=== PATIENT | male | born 1990 | race Caucasian/White ===

== ENCOUNTER 2017-10-20 01:48 | Emergency (ER) | payer MEDICAID ==
--- NOTE | 2017-10-20 02:46 | ED PDOC ---
Arrival/HPI - General Chief Complaint: Eye Problem Time Seen by Provider: 10/20/17 02:12 Historian: Patient - History of Present Illness Narrative History of Present Illness (Text): 10/20/17 02:46 27 year old male, with no significant past medcial history, presents to the emergency department for evaluation of area of redness to the white part of the right eye. Patient denies any history of trauma. Patient denies any visual disturbance, eye pain, headache, dizziness, or any other complaints. Symptom Onset: Gradual Symptom Course: Unchanged Activities at Onset: Light Context: Home Past Medical History - Provider Review Nursing Documentation Reviewed: Yes - Infectious Disease Hx of Infectious Diseases: None - Psychiatric Hx Substance Use: No - Anesthesia Hx Anesthesia: No Family/Social History - Physician Review Nursing Documentation Reviewed: Yes Family/Social History: No Known Family HX Smoking Status: Never Smoked Hx Alcohol Use: No Hx Substance Use: No Allergies/Home Meds Allergies/Adverse Reactions: Allergies No Known Allergies Allergy (Verified 10/20/17 02:15) Home Medications: Home Meds Medication Instructions Recorded Confirmed No Known Home Med 10/20/17 10/20/17 Review of Systems - Physician Review All systems were reviewed & negative as marked: Yes - Review of Systems Eyes: Other (redness to the white part of the right eye). absent: Vision Changes, Eye Pain Neurological: absent: Headache, Dizziness Physical Exam Vital Signs Reviewed: Yes Vital Signs Temp Pulse Resp BP Pulse Ox 10/20/17 02:15 98.6 F 114 H 18 129/73 98 Temperature: Afebrile Blood Pressure: Normal Pulse: Regular Respiratory Rate: Normal Appearance: Positive for: Well-Appearing, Non-Toxic, Comfortable Pain Distress: None Mental Status: Positive for: Alert and Oriented X 3 - Systems Exam Head: Present: Atraumatic, Normocephalic Pupils: Present: PERRL Extroacular Muscles: Present: EOMI Conjunctiva: Present: Other (Right subconjunctival hemorrhage noted ) Mouth: Present: Moist Mucous Membranes Neck: Present: Normal Range of Motion Neurological: Present: GCS=15, CN II-XII Intact, Speech Normal Skin: Present: Warm, Dry, Normal Color. No: Rashes Psychiatric: Present: Alert, Oriented x 3, Normal Insight, Normal Concentration Medical Decision Making ED Course and Treatment: 10/20/17 02:46 Impression: 27 year old male presents for evaluation of area of redness to the white part of the right eye. PE shows right subconjunctival hemorrhage. Plan: -- Reassess and disposition Progress Notes: Patient is in no acute distress. I have discussed the plan with the patient, who expresses understanding. Patient given the opportunity to ask question, all questions were answered and there is agreement with the plan to discharge the patient home. Patient is stable for discharge. Patient was instructed to follow up with property worker or return if symptoms persist/worsen or new concerning symptoms arise. - Scribe Statement The provider has reviewed the documentation as recorded by the Scribe Rachael Silverman Provider Scribe Attestation: All medical record entries made by the Scribe were at my direction and personally dictated by me. I have reviewed the chart and agree that the record accurately reflects my personal performance of the history, physical exam, medical decision making, and the department course for this patient. I have also personally directed, reviewed, and agree with the discharge instructions and disposition. Disposition/Present on Arrival - Present on Arrival Any Indicators Present on Arrival: No History of DVT/PE: No History of Uncontrolled Diabetes: No Urinary Catheter: No History of Decub. Ulcer: No History Surgical Site Infection Following: None - Disposition Have Diagnosis and Disposition been Completed?: Yes Diagnosis: Subconjunctival hemorrhage Disposition: HOME/ ROUTINE Disposition Time: 02:47 Patient Plan: Discharge Condition: GOOD Discharge Instructions (ExitCare): Subconjunctival Hemorrhage Additional Instructions: Avoid rubbing your eye/follow up with your doctor this week Referrals: Cole Jimenez MD [Staff Provider] - Follow up with primary Forms: [employer] (Ind[place]ian)
[2017-10-20 03:10] VITALS: BP 125/72; PULSE 98; RESP 17; TEMP 98; O2SAT 100
== END 2017-10-20 03:09 | disposition home or self-care (01) ==
LOC: ED 01:48
DX: H11.31 Conjunctival hemorrhage, right eye (principal)